=== PATIENT | female | born 1995 | race African-American/Black ===

== ENCOUNTER 2018-05-02 14:14 | Emergency (ER) | payer MEDICAID ==
[~2018-05-02] VITALS: Ht 188 cm; Wt 77.1 kg
[2018-05-02 14:22] VITALS: BP 103/62
== END 2018-05-02 16:23 | disposition left against medical advice (07) ==
LOC: ER 14:14
DX: R56.9 Unspecified convulsions (principal); Z53.21 Procedure and treatment not carried out due to patient leaving prior to being seen by health care provider